=== PATIENT | female | born 1960 | race African-American/Black ===

== ENCOUNTER 2019-02-07 14:50 | Emergency (ER) | payer OTHER ==
[~2019-02-07] VITALS: Ht 160 cm; Wt 59.0 kg
[~2019-02-07 14:50] MED LIST: APAP/CODEINE ELI5 M1 OR; HYDROCHLOROTH12.5 M1 PO; NORCO 5-325 TA1 EACH PO; NORFLEX100 MG PO; ZOCOR 10 MG TAB10 MG PO; ZPAK PO; [UNRECOGNIZED DRUG - OTHER]; [UNRECOGNIZED DRUG - REMARK]
[2019-02-07] MEDS ORDERED: OMEPRAZOLE40 MG PO (15:38)
[2019-02-07] MEDS ORDERED: AUGMENTIN 875-1 EACH PO (16:08)
[2019-02-07] MEDS ORDERED: AFRIN15 ML NASAL (16:08)
[2019-02-07 16:24] VITALS: BP 127/64
== END 2019-02-07 16:25 | disposition home or self-care (01) ==
LOC: ER 14:50
DX: J32.9 Chronic sinusitis, unspecified (principal); I10 Essential (primary) hypertension; Z90.710 Acquired absence of both cervix and uterus; Z87.891 Personal history of nicotine dependence

== ENCOUNTER 2019-02-22 07:32 | Emergency (ER) | payer OTHER ==
[~2019-02-22] VITALS: Ht 160 cm; Wt 61.2 kg
[2019-02-22 07:32] VITALS: BP 127/73
[~2019-02-22 07:32] MED LIST changes: +AFRIN15 ML NASAL; +AUGMENTIN 875-1 EACH PO; +OMEPRAZOLE40 MG PO
[2019-02-22] MEDS ORDERED: MUCINEX600 MG PO (07:56)
[2019-02-22] MEDS ORDERED: MEDROLDOSEPACK PO (07:56)
== END 2019-02-22 08:26 | disposition home or self-care (01) ==
LOC: ER 07:32
DX: R09.81 Nasal congestion (principal); I10 Essential (primary) hypertension; Z90.710 Acquired absence of both cervix and uterus; Z87.891 Personal history of nicotine dependence

== ENCOUNTER 2019-11-13 21:54 | Emergency (ER) | payer BC ==
[~2019-11-13] VITALS: Ht 160 cm; Wt 65.8 kg
[~2019-11-13 21:54] MED LIST changes: +MEDROLDOSEPACK PO; +MUCINEX600 MG PO
[2019-11-14 01:02] VITALS: BP 144/76
== END 2019-11-14 01:03 | disposition home or self-care (01) ==
LOC: ER 21:54
DX: R22.42 Localized swelling, mass and lump, left lower limb (principal); I10 Essential (primary) hypertension; Z90.710 Acquired absence of both cervix and uterus; Z79.899 Other long term (current) drug therapy; Z87.891 Personal history of nicotine dependence

== ENCOUNTER → 2020-08-28 | Emergency (ER) | payer BC ==
[~2020-08-28] VITALS: Ht 160 cm; Wt 63.5 kg
[2020-08-28 15:09] VITALS: BP 109/66
== END ==
LOC: ER 13:23
DX: S61.210A Laceration without foreign body of right index finger without damage to nail, initial encounter (principal); I10 Essential (primary) hypertension; Z90.710 Acquired absence of both cervix and uterus; F17.210 Nicotine dependence, cigarettes, uncomplicated; Z98.890 Other specified postprocedural states; W26.8XXA Contact with other sharp object(s), not elsewhere classified, initial encounter; Y93.89 Activity, other specified; Y92.89 Other specified places as the place of occurrence of the external cause; Y99.8 Other external cause status